=== PATIENT | female | born 1965 | race Hispanic/Latino ===

== ENCOUNTER → 2017-10-29 | Outpatient (CLI) | payer OTHER ==
[~2017-10-29] MED LIST: ALBU0.63 IH; AMPH20CA11 PO; BECL8.7A5 IH; FLUT25PO12 MC; KRIL500C PO; LORA-705 PO; PREM625 PO; PSEU30TA PO; SIMV10TA6 PO; TIZA4CAP8 PO; UBID50TA3 PO
== END | disposition home or self-care (01) ==
LOC: SLP 19:57
PROVIDERS: ATTEND Internal Medicine
DX: G47.33 Obstructive sleep apnea (adult) (pediatric) (principal)
CPT/HCPCS: 95810

== ENCOUNTER → 2018-01-11 | Outpatient (CLI) | payer OTHER | END | disposition home or self-care (01) | LOC: LAB 08:52 | PROVIDERS: ATTEND Family Medicine | DX: M79.671 Pain in right foot (principal); M79.672 Pain in left foot; M72.2 Plantar fascial fibromatosis | CPT/HCPCS: 73630 ==

== ENCOUNTER 2018-07-02 19:46 | Emergency (ER) | payer OTHER ==
[2018-07-02 21:23] LABS: APPEARANCE,URINE Clear (CLEAR); BILIRUBIN,URINE Negative (NEGATIVE); COLOR,URINE Yellow (YELLOW); GLUCOSE, URINE (UA) Negative (NEGATIVE); KETONES,URINE Negative (NEGATIVE); LEUKOCYTE ESTERASE ,URINE Moderate (NEGATIVE); NITRATE,URINE Negative (NEGATIVE); OCCULT BLOOD,URINE Small (NEGATIVE); PH,URINE 5.5 (5.0-8.0); PROTEIN,URINE Negative (NEGATIVE); UROBILINOGEN,URINE 0.2 mg/dL (0.2-1.0)
[2018-07-02 21:44] LABS: BACTERIA,URINE Rare /HPF (None Seen); RBC,URINE 0-1 /HPF (0-1)
[2018-07-02 21:45] LABS: SQUAMOUS EPITHELIAL CELL,UR Few /HPF (0-2); TRANSITIONAL EPI CELLS,URINE Rare /HPF (None Seen)
[2018-07-02 23:03] LABS: BASOPHILS % (AUTO) 0.4 % (0.0-5.0); EOSINOPHILS % (AUTO) 1.6 % (0.0-8.0); HEMATOCRIT 39.7 % (36-48); LYMPHOCYTES % (AUTO) 35.1 % (21.0-51.0); MEAN CORPUSCULAR HEMOGLOBIN 30.2 pg (27.0-33.0); MEAN CORPUSCULAR HGB CONC 33.4 g/dL (32.0-36.0); MEAN CORPUSCULAR VOLUME 90.6 fL (79-99); NEUTROPHILS % (AUTO) 56.9 % (40.0-77.0); NUCLEATED RED BLOOD CELLS 0.1 % (0.0-0.19); PLATELET COUNT (AUTO) 275 K/uL (130-400); RED BLOOD CELL COUNT(AUTO) 4.38 MIL/uL (4.00-5.50); RED CELL DISTRIBUTION WIDTH 12.9 % (11.0-15.5)
[2018-07-02 23:12] LABS: CREATININE 0.8 mg/dL (0.5-1.5)
[2018-07-02 23:14] LABS: INR 0.89 (0.85-1.15); PARTIAL THROMBOPLASTIN TIME 24.2 SEC (26.3-35.5); PROTHROMBIN TIME 9.4 SEC (9.6-11.6)
[2018-07-02 23:17] LABS: ALBUMIN 3.2 g/dL (3.5-5.0); BILIRUBIN,TOTAL 0.4 mg/dL (0.2-1.0); TOTAL PROTEIN, SERUM 6.4 g/dL (6.0-8.3)
== END 2018-07-03 01:53 | disposition home or self-care (01) ==
LOC: EDH 19:46
DX: M79.601 Pain in right arm (principal); J45.909 Unspecified asthma, uncomplicated; E78.5 Hyperlipidemia, unspecified; Z90.710 Acquired absence of both cervix and uterus; Z90.49 Acquired absence of other specified parts of digestive tract
CPT/HCPCS: 36415; 80053; 81001; 84484; 85025; 85610; 85730; 93005

== ENCOUNTER → 2018-07-05 | Outpatient (CLI) | payer OTHER | END | disposition home or self-care (01) | LOC: RAH 08:04 | PROVIDERS: ATTEND Obstetrics & Gynecology | DX: Z12.31 Encounter for screening mammogram for malignant neoplasm of breast (principal) | CPT/HCPCS: 77067 ==

== ENCOUNTER → 2018-07-12 | Outpatient (CLI) | payer OTHER ==
[2018-07-12 09:56] LABS: ALBUMIN 3.5 g/dL (3.5-5.0); BILIRUBIN,TOTAL 0.5 mg/dL (0.2-1.0); CREATININE 0.7 mg/dL (0.5-1.5); POTASSIUM 3.9 mmol/L (3.5-5.1); TOTAL PROTEIN, SERUM 6.8 g/dL (6.0-8.3)
== END | disposition home or self-care (01) ==
LOC: LAB 08:47
PROVIDERS: ATTEND Family Medicine
DX: E78.5 Hyperlipidemia, unspecified (principal)
CPT/HCPCS: 36415; 80053; 80061

== ENCOUNTER 2018-11-26 05:30 | Day surgery (SDC) | payer OTHER ==
[2018-11-26] VITALS (8 sets, daily range): BP systolic 89–105; BP diastolic 38–62
[~2018-11-26] VITALS: Ht 162.6 cm; Wt 79.7 kg
[~2018-11-26 05:30] MED LIST changes: +ALEN70TA10 PO; -AMPH20CA11 PO; +ASPI-555 PO; -BECL8.7A5 IH; +ESTR0.5T PO; -FLUT25PO12 MC; +MV-M1TAB20 PO; -PREM625 PO; -PSEU30TA PO; +ROSU10TA27 PO; -SIMV10TA6 PO; -TIZA4CAP8 PO; +TROS20TA4 PO; +VITA400T7 PO
[2018-11-26] MEDS ORDERED: SODIUM CHLORIDE 0.9% 1000ML 1,000 ML IV ONE (05:53)
[2018-11-26] MEDS ORDERED: LIDOCAINE HCL 2% 20ML ONE (06:56)
[2018-11-26] MEDS ORDERED: GLYCOPYRROLATE 0.2 MG/ML 5 ML VIAL ONE (06:56)
[2018-11-26] MEDS ORDERED: PROPOFOL 10 MG/ML 20ML VIAL IV ONE (06:56)
[2018-11-26] MEDS ORDERED: PHENYLEPHRINE HCL 10 MG/ML 1ML VIAL IV ONE (07:04)
== END 2018-11-26 07:45 | disposition home or self-care (01) ==
LOC: ENDO 05:30 → DAH 05:30 → ENDO 07:45
PROVIDERS: ATTEND Internal Medicine
DX: K21.0 Gastro-esophageal reflux disease with esophagitis (principal); K29.70 Gastritis, unspecified, without bleeding; E78.5 Hyperlipidemia, unspecified; J45.909 Unspecified asthma, uncomplicated; M81.0 Age-related osteoporosis without current pathological fracture; M19.90 Unspecified osteoarthritis, unspecified site; Z98.890 Other specified postprocedural states; Z90.710 Acquired absence of both cervix and uterus; Z68.30 Body mass index [BMI] 30.0-30.9, adult; Z79.01 Long term (current) use of anticoagulants; Z79.899 Other long term (current) drug therapy; B96.81 Helicobacter pylori [H. pylori] as the cause of diseases classified elsewhere
CPT/HCPCS: 43239; 88305; 88312; A4606; J2370; J2704; J3490 ×2; J7030

== ENCOUNTER → 2019-02-11 | Outpatient (CLI) | payer OTHER ==
[2019-02-11 13:59] LABS: BASOPHILS % (AUTO) 0.3 % (0.0-5.0); EOSINOPHILS % (AUTO) 0.1 % (0.0-8.0); HEMATOCRIT 38.6 % (36-48); MEAN CORPUSCULAR HEMOGLOBIN 30.8 pg (27.0-33.0); MEAN CORPUSCULAR HGB CONC 34.2 g/dL (32.0-36.0); MEAN CORPUSCULAR VOLUME 90.2 fL (79-99); MONOCYTES % (AUTO) 4.5 % (3.0-13.0); NEUTROPHILS % (AUTO) 79.1 % (40.0-77.0); PLATELET COUNT (AUTO) 232 K/uL (130-400); RED BLOOD CELL COUNT(AUTO) 4.28 MIL/uL (4.00-5.50); RED CELL DISTRIBUTION WIDTH 12.5 % (11.0-15.5); WHITE BLOOD COUNT (AUTO) 10.1 K/uL (4.8-10.8)
[2019-02-11 14:06] LABS: HEMOGLOBIN A1C 5.7 % (4.0-6.0)
[2019-02-11 14:22] LABS: ALBUMIN 3.7 g/dL (3.5-5.0); BILIRUBIN,TOTAL 0.5 mg/dL (0.2-1.0); CREATININE 0.7 mg/dL (0.5-1.5); POTASSIUM 3.7 mmol/L (3.5-5.1); THYROID STIMULATING HORMONE 1.34 uIU/mL (0.36-3.74); TOTAL PROTEIN, SERUM 6.9 g/dL (6.0-8.3)
== END | disposition home or self-care (01) ==
LOC: RAH 13:23
PROVIDERS: ATTEND Family Medicine
DX: M19.072 Primary osteoarthritis, left ankle and foot (principal); M77.32 Calcaneal spur, left foot; M16.11 Unilateral primary osteoarthritis, right hip; M79.89 Other specified soft tissue disorders
CPT/HCPCS: 36415; 73502; 73600; 80053; 80061; 82306; 83036; 84443; 85025

== ENCOUNTER → 2019-07-23 | Outpatient (CLI) | payer OTHER ==
[~2019-07-23] MED LIST changes: -ROSU10TA27 PO; +ROSU10TA28 PO
== END | disposition home or self-care (01) ==
LOC: RAH 15:50
PROVIDERS: ATTEND Obstetrics & Gynecology
DX: Z12.31 Encounter for screening mammogram for malignant neoplasm of breast (principal)
CPT/HCPCS: 77067

== ENCOUNTER → 2020-01-05 | Outpatient (CLI) | payer OTHER ==
[2020-01-05 13:57] LABS: BASOPHILS % (AUTO) 0.7 % (0.0-5.0); EOSINOPHILS % (AUTO) 2.5 % (0.0-8.0); HEMATOCRIT 41.6 % (36-48); LYMPHOCYTES % (AUTO) 29.4 % (21.0-51.0); MEAN CORPUSCULAR HEMOGLOBIN 30.6 pg (27.0-33.0); MEAN CORPUSCULAR HGB CONC 32.7 g/dL (32.0-36.0); MEAN CORPUSCULAR VOLUME 93.7 fL (79-99); MONOCYTES % (AUTO) 6.8 % (3.0-13.0); NEUTROPHILS % (AUTO) 60.4 % (40.0-77.0); PLATELET COUNT (AUTO) 252 K/uL (130-400); RED BLOOD CELL COUNT(AUTO) 4.44 MIL/uL (4.00-5.50); RED CELL DISTRIBUTION WIDTH 11.9 % (11.0-15.5)
[2020-01-05 14:19] LABS: ALBUMIN 3.5 g/dL (3.5-5.0); BILIRUBIN,TOTAL 0.4 mg/dL (0.2-1.0); CREATININE 0.7 mg/dL (0.5-1.5); POTASSIUM 4.1 mmol/L (3.5-5.1); THYROID STIMULATING HORMONE 1.29 uIU/mL (0.36-3.74); TOTAL PROTEIN, SERUM 7.2 g/dL (6.0-8.3)
[2020-01-05 14:26] LABS: HEMOGLOBIN A1C 5.6 % (4.0-6.0)
[2020-01-05 14:55] LABS: APPEARANCE,URINE CLEAR (CLEAR); BILIRUBIN,URINE NEGATIVE (NEGATIVE); COLOR,URINE YELLOW (YELLOW); GLUCOSE, URINE (UA) NEGATIVE (NEGATIVE); KETONES,URINE NEGATIVE (NEGATIVE); LEUKOCYTE ESTERASE ,URINE NEGATIVE (NEGATIVE); NITRATE,URINE NEGATIVE (NEGATIVE); OCCULT BLOOD,URINE MODERATE (NEGATIVE); PH,URINE 5.5 (5.0-8.0); PROTEIN,URINE NEGATIVE (NEGATIVE); UROBILINOGEN,URINE 0.2 mg/dL (0.2-1.0)
[2020-01-05 15:36] LABS: BACTERIA,URINE Rare /HPF (None Seen); WBC,URINE 0-1 /HPF (0-1)
[2020-01-05 15:37] LABS: SQUAMOUS EPITHELIAL CELL,UR Rare /HPF (0-2); YEAST,URINE BUDDING Rare /HPF (None Seen)
== END | disposition home or self-care (01) ==
LOC: LAB 13:06
PROVIDERS: ATTEND Family Medicine
DX: Z00.00 Encounter for general adult medical examination without abnormal findings (principal)
CPT/HCPCS: 36415; 80053; 80061; 81001; 82043; 82270; 82306; 83036; 84443; 85025

== ENCOUNTER → 2020-02-05 | Outpatient (CLI) | payer OTHER | END | disposition home or self-care (01) | LOC: LAB 08:53 | PROVIDERS: ATTEND Family Medicine | DX: Z04.89 Encounter for examination and observation for other specified reasons (principal) | CPT/HCPCS: 36415; 80061; 82310 ==

== ENCOUNTER → 2020-02-25 | Outpatient (CLI) | payer OTHER | END | disposition home or self-care (01) | LOC: RAH 16:17 | PROVIDERS: ATTEND Family Medicine | DX: J45.901 Unspecified asthma with (acute) exacerbation (principal) | CPT/HCPCS: 71046 ==

== ENCOUNTER 2020-03-01 20:04 | Emergency (ER) | payer OTHER ==
[~2020-03-01 20:04] MED LIST changes: -ASPI-555 PO; +ASPI-556 PO
[2020-03-01 20:26] LABS: BASOPHILS % (AUTO) 0.1 % (0.0-5.0); LYMPHOCYTES % (AUTO) 5.4 % (21.0-51.0); MEAN CORPUSCULAR HGB CONC 33.5 g/dL (32.0-36.0); MEAN CORPUSCULAR VOLUME 92.6 fL (79-99); NEUTROPHILS % (AUTO) 92.8 % (40.0-77.0); PLATELET COUNT (AUTO) 230 K/uL (130-400); RED BLOOD CELL COUNT(AUTO) 4.32 MIL/uL (4.00-5.50); WHITE BLOOD COUNT (AUTO) 7.4 K/uL (4.8-10.8)
[2020-03-01 20:37] LABS: CREATININE 0.9 mg/dL (0.5-1.5); POTASSIUM 3.9 mmol/L (3.5-5.1)
[2020-03-01 20:43] LABS: ALBUMIN 3.4 g/dL (3.5-5.0); BILIRUBIN,TOTAL 0.3 mg/dL (0.2-1.0); TOTAL PROTEIN, SERUM 6.6 g/dL (6.0-8.3)
[2020-03-01] MEDS ORDERED: ASPIRIN 325 MG TABLET ONE (20:49)
[2020-03-01 21:06] LABS: B-TYPE NATRIURETIC PEPTIDE 8 pg/mL (0-100)
[2020-03-01 21:12] LABS: INR 0.85 (0.85-1.15); PARTIAL THROMBOPLASTIN TIME 22.4 SEC (26.3-35.5); PROTHROMBIN TIME 9.2 SEC (9.6-11.6)
== END 2020-03-01 21:47 | disposition home or self-care (01) ==
LOC: EDH 20:04
DX: R07.89 Other chest pain (principal); F41.9 Anxiety disorder, unspecified; J45.909 Unspecified asthma, uncomplicated; E78.5 Hyperlipidemia, unspecified; Z90.710 Acquired absence of both cervix and uterus; Z90.49 Acquired absence of other specified parts of digestive tract
CPT/HCPCS: 36415; 71045; 80053; 82550; 83880; 84484; 85025; 85378; 85610; 85730; 93005

== ENCOUNTER 2020-03-19 09:13 | Day surgery (SDC) | payer OTHER ==
[~2020-03-19] VITALS: Ht 162.6 cm; Wt 79.8 kg
[~2020-03-19 09:13] MED LIST changes: -ALEN70TA10 PO; +ALEN70TA69 PO; +SODIUM CHLORIDE 0.9% 1000ML 1,000 ML IV ONE
[2020-03-19 10:45] VITALS: BP 179/71
[2020-03-19] MEDS ORDERED: ICOS1CAP PO (10:59)
[2020-03-19] MEDS ORDERED: PROPOFOL 10 MG/ML 20ML VIAL IV ONE ×2 (11:46→11:53)
[2020-03-19] MEDS ORDERED: MIDAZOLAM HCL 1 MG/ML 2ML VIAL ONE (11:47)
[2020-03-19 12:03] VITALS: BP 97/54
--- NOTE | 2020-03-19 12:05 | NUR ---
EGD CANCEL PER PATIENT AND DR BARAJAS, PATIENT DOES NOT HANVE ANYONE TO STAY AT HOME AFTER PROCEDURE .
--- NOTE | 2020-03-19 12:07 | NUR ---
IV DC'D PRESSURE DRESSING APPLIED, NO BLEEDING NOTED
[2020-03-19 12:08] VITALS: BP 88/53
[2020-03-19 12:14] VITALS: BP 112/60
[2020-03-19 12:18] VITALS: BP 117/62
[2020-03-19 12:23] VITALS: BP 109/68
== END 2020-03-19 12:55 | disposition home or self-care (01) ==
LOC: ENDO 09:13 → DAH 09:13 → ENDO 12:55
PROVIDERS: ATTEND Internal Medicine Gastroenterology
DX: R10.13 Epigastric pain (principal); R14.0 Abdominal distension (gaseous); K29.70 Gastritis, unspecified, without bleeding
CPT/HCPCS: 36415; 43239; A4215; A4221; A4223; A4606; A4620; A4657; A4663; C1751; J2250; J2704 ×2; J7030; U0003

== ENCOUNTER → 2020-07-23 | Outpatient (CLI) | payer OTHER ==
[~2020-07-23] MED LIST changes: +ICOS1CAP PO; -KRIL500C PO; -LORA-705 PO; -SODIUM CHLORIDE 0.9% 1000ML 1,000 ML IV ONE
[2020-07-23 09:56] LABS: BASOPHILS % (AUTO) 0.5 % (0.0-5.0); EOSINOPHILS % (AUTO) 4.1 % (0.0-8.0); HEMATOCRIT 39.6 % (36-48); LYMPHOCYTES % (AUTO) 33.1 % (21.0-51.0); MEAN CORPUSCULAR HEMOGLOBIN 30.2 pg (27.0-33.0); MEAN CORPUSCULAR HGB CONC 33.1 g/dL (32.0-36.0); MEAN CORPUSCULAR VOLUME 91.2 fL (79-99); MONOCYTES % (AUTO) 7.9 % (3.0-13.0); NEUTROPHILS % (AUTO) 54.2 % (40.0-77.0); PLATELET COUNT (AUTO) 248 K/uL (130-400); RED BLOOD CELL COUNT(AUTO) 4.34 MIL/uL (4.00-5.50); RED CELL DISTRIBUTION WIDTH 11.7 % (11.0-15.5)
[2020-07-23 10:21] LABS: ALBUMIN 3.6 g/dL (3.5-5.0); BILIRUBIN,TOTAL 0.4 mg/dL (0.2-1.0); CREATININE 0.6 mg/dL (0.5-1.5); POTASSIUM 3.9 mmol/L (3.5-5.1); THYROID STIMULATING HORMONE 1.81 uIU/mL (0.36-3.74); TOTAL PROTEIN, SERUM 7.1 g/dL (6.0-8.3)
== END | disposition home or self-care (01) ==
LOC: RAH 08:11
PROVIDERS: ATTEND Family Medicine
DX: M47.818 Spondylosis without myelopathy or radiculopathy, sacral and sacrococcygeal region (principal); R53.83 Other fatigue; E78.5 Hyperlipidemia, unspecified
CPT/HCPCS: 36415; 72220; 80053; 80061; 84443; 85025; 86431

== ENCOUNTER → 2020-07-28 | Outpatient (CLI) | payer OTHER | END | disposition home or self-care (01) | LOC: RAH 07:51 | PROVIDERS: ATTEND Family Medicine | DX: Z12.31 Encounter for screening mammogram for malignant neoplasm of breast (principal) | CPT/HCPCS: 77067 ==

== ENCOUNTER → 2021-10-31 | Outpatient (CLI) | payer BC ==
[~2021-10-31] MED LIST changes: -ALEN70TA69 PO; +ALEN70TA80 PO
== END | disposition home or self-care (01) ==
LOC: RAH 12:59
PROVIDERS: ATTEND Obstetrics & Gynecology
DX: N60.02 Solitary cyst of left breast (principal); N64.89 Other specified disorders of breast
CPT/HCPCS: 76641; 77065

== ENCOUNTER 2024-07-30 07:24 | Day surgery (SDC) | payer BC ==
[2024-07-30] VITALS (10 sets, daily range): BP systolic 98–115; BP diastolic 56–71; PULSE 59–73; RESP 14–16; TEMP 97.1–97.8
[~2024-07-30] VITALS: Ht 162.6 cm; Wt 81.2 kg
[~2024-07-30 07:24] MED LIST changes: +ALBU18HF7 IH; +ASCO500C18 PO; +ASPI-1005 PO; -ASPI-556 PO; +BUDE10.7 IH; +CETI10TA87 PO; +CHLO4TAB32 PO; +CO Q-10 PO; -ESTR0.5T PO; +ESTR1TAB17 PO; +MAGN250T10 PO; +PANT40TA54 PO; -ROSU10TA28 PO; +ROSUVASTATIN PO; -UBID50TA3 PO; +VITA-348 PO; -VITA400T7 PO; +ZINC220T4 PO
[2024-07-30] MEDS: 0.9%NACL 1000ML 1,000 ML IV ONE (09:53)
[2024-07-30] MEDS ORDERED: proPOFol 10 MG/ML 20ML VIAL IV ONE (10:51)
== END 2024-07-30 11:57 | disposition home or self-care (01) ==
LOC: DAH 07:24
PROVIDERS: ATTEND Internal Medicine Gastroenterology
DX: R10.13 Epigastric pain (principal); K29.80 Duodenitis without bleeding; K29.70 Gastritis, unspecified, without bleeding; B96.81 Helicobacter pylori [H. pylori] as the cause of diseases classified elsewhere; K31.84 Gastroparesis; R14.0 Abdominal distension (gaseous); K59.04 Chronic idiopathic constipation; J45.909 Unspecified asthma, uncomplicated; M19.90 Unspecified osteoarthritis, unspecified site; E78.5 Hyperlipidemia, unspecified; M81.0 Age-related osteoporosis without current pathological fracture; Z90.49 Acquired absence of other specified parts of digestive tract; Z90.710 Acquired absence of both cervix and uterus; Z88.0 Allergy status to penicillin; Z79.82 Long term (current) use of aspirin; Z79.899 Other long term (current) drug therapy
CPT/HCPCS: 43239; J7030 ×2; J2704; A4620; A4215 ×2; A4223; A4222; A4221; A4663; A4606; J3490

== ENCOUNTER → 2024-09-22 | Outpatient (CLI) | payer BC ==
--- NOTE | 2024-09-22 09:20 | HMCIMG ---
CT CHEST HIGH RESOLUTION (WO) HISTORY: Asthma COMPARISON: 01/20/2017 TECHNIQUE: Multiple sequential axial images of the chest were obtained from the thoracic inlet through upper abdomen. Patient was not given contrast through intravenous route. High-resolution images were obtained. FINDINGS: There is no evidence of pulmonary nodule or parenchymal disease. No pleural effusion or pericardial effusion is seen. There is no evidence of pneumothorax. There are normal size mediastinal and hilar lymph nodes. The heart is not enlarged. There may be mild emphysematous changes. Post cholecystectomy changes are seen. No definite interstitial fibrotic changes are seen. Degenerative changes of the thoracolumbar spine are present. There is no evidence of adrenal nodule. IMPRESSION: 1. No evidence of pulmonary nodule or effusion is seen. CT was performed with one or more following dose reduction techniques: automated exposure control, adjustment of the mA and kv according to patient's size, or use of a iterative reconstruction technique.
== END | disposition home or self-care (01) ==
LOC: RAH 07:42
PROVIDERS: ATTEND Internal Medicine
DX: J43.9 Emphysema, unspecified (principal); J84.112 Idiopathic pulmonary fibrosis; R06.09 Other forms of dyspnea; M47.815 Spondylosis without myelopathy or radiculopathy, thoracolumbar region; Z90.49 Acquired absence of other specified parts of digestive tract
CPT/HCPCS: 71250

== ENCOUNTER → 2024-10-28 | Outpatient (CLI) | payer BC ==
--- NOTE | 2024-10-28 17:01 | HMCSR ---
APPROVED REPORT EXAM: Two-dimensional and M-mode echocardiogram with Doppler and color Doppler. INDICATION ICD: Other forms of dyspnea R06.09 2D Dimensions RVDd2.8 cmLVEF(%)82.3 (>50%)LVED Vol(simp.)79.0 mL IVSd0.7 (0.7-1.1cm)FS(%)51 %LVES Vol(simp.)26.4 mL LVDd4.7 (3.8-5.6cm)LA (2D)3.6 (1.6-4.0cm)LVEF(%, simp.)67 % PWd0.9 (0.7-1.1cm)Ao Root(2D)3.7 (2.0-3.7cm)LA ESV INDEX (4CH)15.10 mL/m2 IVSs1.3 cmLVOT diam2.1 (1.8-2.4cm)LA ESV INDEX (2CH)21.50 mL/m2 LVDs2.3 (2.5-4.0cm)LA ESV INDEX (BP)17.70 mL/m2 PWs1.4 cm M-Mode Dimensions EPSS0.3 cm LA (MM)3.6 (1.6-4.0cm) Ao Root(MM)2.8 (2.0-3.7cm) Aortic Valve AoV VTI0.3 mAo Mean GR3.0 mmHgLVOT VTI0.27 m LESLI (VMAX)3.3 cm2AVA (VTI) 3.3 cm2 Mitral Valve MV E Vmax82.0 cm/sDECEL Rcjq177 ms MV A Vmax60.1 cm/sP 1/2 T65 ms E/A ratio1.4MVA (PHT)3.4 cm2 TDI E/E' Gwilgf63.8E/E' Lateral7.1 Medial E' Peak V6.40 cm/sLateral E' Peak V11.50 cm/s Tricuspid Valve TR Vmax1.8 m/s TR Peak GR13.4 mmHg Left Ventricle The left ventricle is normal size. Can not appreciate any wall motion abnormalities on views obtained There is normal left ventricular wall thickness. LVEF is 60-65%. The left ventricular diastolic func tion is normal. Right Ventricle The right ventricle is normal size. The right ventricular systolic function is normal. Atria The left atrium size is normal. The right atrium size is normal. Aortic Valve The aortic valve is normal in structure. No aortic regurgitation is present. There is no aortic valvu lar stenosis. Mitral Valve The mitral valve is normal in structure. There is no mitral valve regurgitation noted. There is no mi tral valve stenosis. Tricuspid Valve The tricuspid valve is normal in structure. There is trace tricuspid valve regurgitation noted. Pulmonic Valve The pulmonary valve is normal in structure. There is no pulmonic valvular regurgitation. Great Vessels The aortic root is normal in size. The IVC is normal in size and collapses >50% with inspiration. Pericardium There is no pericardial effusion. Conclusion LVEF is 60-65%. Can not appreciate any wall motion abnormalities on views obtained The left ventricular diastolic function is normal. The aortic root is normal in size. There is no pericardial effusion.
== END | disposition home or self-care (01) ==
LOC: RAH 11:04
PROVIDERS: ATTEND Internal Medicine
DX: R06.09 Other forms of dyspnea (principal)
CPT/HCPCS: 93306

== ENCOUNTER → 2024-11-19 | Outpatient (CLI) | payer BC | END | disposition home or self-care (01) | LOC: RAH 10:23 | PROVIDERS: ATTEND Internal Medicine | DX: Z12.31 Encounter for screening mammogram for malignant neoplasm of breast (principal) | CPT/HCPCS: 77067 ==